=== PATIENT | female | born 1985 | race Caucasian/White ===

== ENCOUNTER 2018-07-26 18:00 | Inpatient (IN) | payer BC ==
[~2018-07-26] VITALS: Ht 157.5 cm; Wt 81.3 kg
[2018-07-26 19:01] VITALS: Ht 157.5 cm; Wt 81.3 kg
[2018-07-26] MEDS ORDERED: PREN-93 PO (19:05)
[2018-07-26 19:09] VITALS: BP 127/65; PULSE 83
[2018-07-26] MEDS: LACTATED RINGER'S 1,000 ML IV SCH (20:17)
[2018-07-26] MEDS ORDERED: IBUPROFEN 600 MG TAB PO PRN (20:30)
[2018-07-26] MEDS ORDERED: METHYLERGONOVINE 0.2 MG INJ IM PRN (20:30)
[2018-07-26] MEDS ORDERED: CARBOPROST 250 MCG INJ IM PRN (20:30)
[2018-07-26] MEDS ORDERED: OXYTOCIN 30 UNITS/LR 500 ML IV SCH ×2 (20:30)
[2018-07-26] MEDS ORDERED: OXYTOCIN 30 UNITS/LR 500 ML IV PRN (20:30)
[2018-07-26] MEDS ORDERED: LIDOCAINE 1% (MPF) 30 ML INJ INJ PRN (20:30)
[2018-07-26] MEDS ORDERED: MISOPROSTOL 50 MCG CAPSULE VAG ONE (20:30)
[2018-07-26] MEDS ORDERED: BUTORPHANOL 2 MG INJ IV PRN ×2 (20:30)
[2018-07-26] MEDS ORDERED: MISOPROSTOL 200 MCG TAB PR PRN (20:30)
[2018-07-26] MEDS ORDERED: MISOPROSTOL 50 MCG CAPSULE PO ONE (21:00)
[2018-07-27] MEDS: MISOPROSTOL 50 MCG CAPSULE PO PRN ×5 (02:03→21:16)
[2018-07-27] MEDS: LACTATED RINGER'S 1,000 ML IV SCH ×3 (04:05→20:08)
--- NOTE | 2018-07-27 09:32 | HP ---
Date/Time of Note Date/Time of Note DATE: 07/27/18 TIME: 09:30 OB - History Hx of Present Chief Complaint: induction of labor Estimated Due Date: Jul 27, 2018 : 3 Para: 2 Spontaneous : 0 Therapeutic : 0 Care: Good Care Ultrasounds: Normal mid trimester US Obstetrical Complications: None Medical Complications: None Past Family/Social History * Past Medical, Surgical, Family and Obstetric Histories reviewed from chart. GBS Status: Negative OB Admission Exam Vital Signs Vital Signs Vital Signs Date Temp Pulse Resp B/P (MAP) Pulse Ox O2 O2 Flow FiO2 Time Delivery Rate 07/26/18 98.7 83 127/65 Room Air 19:09 (85) Physical Exam HEENT: WNL Heart: Rhythm Normal Lungs: Clear, Equal Abdomen: WNL Extremities: Normal Reflexes: Normal Cervical Dilatation: 1cm Effacement: 50% Station: -2 Membranes: Intact Heart Rate: 120's Accelerations: Accelerations Present Decelerations: No Decelerations Varibility: Moderate Last 72 hours Lab Results CBC & BMP 07/26/18 19:00 OB Assessment/Plan Reason for admission: induction of labor Plan: Induction Induction Method: per Misoprostol Protocol ML RESTREPO MD Jul 27, 2018 09:32
[2018-07-28] MEDS ORDERED: OXYTOCIN 30 UNITS/LR 500 ML IV SCH (02:00)
[2018-07-28] MEDS: LACTATED RINGER'S 1,000 ML IV SCH (03:36)
--- NOTE | 2018-07-28 07:42 | PREAC ---
Date/Time of Note Date/Time of Note DATE: 07/28/18 TIME: 07:41 Anesthesia Eval and Record Evaluation Time Pre-Procedure Interview DATE: 07/28/18 TIME: 07:41 Age 32 Sex female NPO: 8 hrs Preoperative diagnosis Labor Pain Planned procedure Labor Epidural Past Medical History Past Medical History: Includes : : (3), Para: (2), Gestational age: (40) Surgery & Anesthesia Issues No known issue Meds Anticoagulation: No Beta Ze within 24 hr: No Reason Beta Ze not given: Pt. not on B-Ze Reported Medications Vit No.124/Iron/FA ( Vitamin Tablet) 1 Each Tablet, 1 EACH PO DAILY, TAB 07/26/18 Current Medications Lactated Ringer's 1,000 ml @ 125 mls/hr Q8H IV Last administered on 07/28/18at 03:36; Admin Dose 125 MLS/HR; Start 07/26/18 at 20:05 Butorphanol Tartrate (Stadol) 1 mg Q2H PRN IV .PAIN SCALE 1-5; Start 07/26/18 at 20:30 Butorphanol Tartrate (Stadol) 2 mg Q2H PRN IV .PAIN SCALE 6-10 Last administered on 07/28/18at 04:40; Admin Dose 2 MG; Start 07/26/18 at 20:30 Lidocaine (Xylocaine 1% (Mpf)) 30 ml ONCE PRN INJ .EPISIOTOMY; Start 07/26/18 at 20:30 Oxytocin/Lactated Ringer's 500 ml @ 500 mls/hr ONCE POST IV ; Start 07/26/18 at 20:30 Oxytocin/Lactated Ringer's 500 ml @ 125 mls/hr POST IV ; Start 07/26/18 at 20:30 Ibuprofen (Motrin) 600 mg ONCE PRN PO .PAIN 1-5; Start 07/26/18 at 20:30 Oxytocin/Lactated Ringer's 500 ml @ 0 mls/hr ONCE PRN IV .VAGINAL BLEEDING; Start 07/26/18 at 20:30 Methylergonovine Maleate (Methergine) 0.2 mg ONCE PRN IM .VAGINAL BLEEDING; Start 07/26/18 at 20:30 Carboprost Tromethamine (Hemabate) 250 mcg ONCE PRN IM .VAGINAL BLEEDING; Start 07/26/18 at 20:30 Misoprostol (Cytotec) 1,000 mcg ONCE PRN NV .VAGINAL BLEEDING; Start 07/26/18 at 20:30 Misoprostol (Cytotec 50 Mcg Capsule) 50 mcg Q4 PRN PO LABOR INDUCTION Last administered on 07/27/18at 21:16; Admin Dose 50 MCG; Start 07/27/18 at 01:00 Oxytocin/Lactated Ringer's 500 ml @ 0 mls/hr Q0M IV Last administered on 07/28/18at 02:10; Admin Dose 1 MLS/HR; Start 07/28/18 at 02:00 Meds reviewed: Yes Allergies Coded Allergies: Penicillins (Verified Allergy, Severe, RASH, 07/01/08) Allergies Reviewed: Yes Labs/Studies Labs Reviewed: Reviewed by anesthesiologist Result Diagram: 07/26/181899 test: Positive Studies: ECG (n/a), CXR (n/a) Pre-procedure Exam Last vitals Vital Signs Date Temp Pulse Resp B/P (MAP) Pulse Ox O2 O2 Flow FiO2 Time Delivery Rate 07/26/18 98.7 83 127/65 Room Air 19:09 (85) Airway: Adequate mouth opening, Adequate thyromental dist Mallampati: Mallampati II Teeth: Normal Lung: Normal Heart: Normal ASA Physical Status ASA physical status: 2 Emergency: None Planned Anesthetic Neuraxial: Epidural Planned Pain Management Epidural Pre-operative Attestations Prior to commencing anesthesia and surgery, the patient was re-evaluated, there was verification of: *The patient's identity *The results of appropriate recent lab work and preoperative vital signs *The above evaluation not changing prior to induction *Anesthetic plan, risk benefits, alternative and complications discussed with patient/family; questions answered; patient/family understands, accepts and wishes to proceed. TOMMIE MASSEY MD Jul 28, 2018 07:42
[2018-07-28] MEDS ORDERED: FENTAnyl 2MCG/ML-ROPIV 0.2% 100 ML ONE (07:55)
--- NOTE | 2018-07-28 08:06 | PAC ---
Date/Time of Note Date/Time of Note DATE: 07/28/18 TIME: 08:05 Post-Anesthesia Notes Post-Anesthesia Note Last documented vital signs Vital Signs Date Temp Pulse Resp B/P (MAP) Pulse Ox O2 O2 Flow FiO2 Time Delivery Rate 07/28/18 98.7 83 16 127/65 97 Room Air 08:09 (85) Activity: WNL Respiratory function: WNL Cardiovascular function: WNL Mental status: Baseline Pain reasonably controlled: Yes Hydration appropriate: Yes Nausea/Vomiting absent: Yes TOMMIE MASSEY MD Jul 28, 2018 08:06
[2018-07-28] MEDS ORDERED: NALOXONE (0.4 MG/ML) INJ IV PRN (08:30)
[2018-07-28] MEDS ORDERED: FENTAnyl 2MCG/ML-ROPIV 0.2% 100 ML BAG EPI SCH (08:30)
[2018-07-28] MEDS ORDERED: GENTAMICIN 120 MG/NS (PMX) 100 ML IVPB SCH (18:20)
--- NOTE | 2018-07-28 19:11 | LDN ---
Date/Time of Note Date/Time of Note DATE: 07/28/18 TIME: 19:09 Delivery Summary Weeks of Gestation 40 weeks Placenta Delivered: Spontaneously Meconium: none Episiotomy: No Laceration repair: First degree perineal alceration repaired with 3-0 chromic. Anesthesia type: Epidural Estimated blood loss: 200 Sponge & Needle done & correct: Yes All needle counts correct: Yes Any foreign bodies felt in the: No Delivery Information Sex Sex: female Apgars 1 Minute: 7 5 Minute: 8 10 Minute: 9 Suctioning Nose & mouth suctioned at lisa: No Umbilical Cord Umbilical cord with: 3 Vessels Cord presentations: no nuchal cord Cord Blood was obtained: Yes Mother & Baby Disposition Disposition Mom & Baby to Maternity; Good: Yes ML RESTREPO MD Jul 28, 2018 19:11
[2018-07-28] MEDS ORDERED: CLINDAMYCIN 900 MG/D5W (PMX) 50 ML IVPB SCH (19:30)
[2018-07-28 22:00] VITALS: BP 116/70; PULSE 92; RESP 19
[2018-07-28] MEDS: LACTATED RINGER'S 1,000 ML IV* SCH (22:20)
[2018-07-28] MEDS ORDERED: MISOPROSTOL 200 MCG TAB PR PRN (22:30)
[2018-07-28] MEDS ORDERED: WITCH HAZEL/GLYCERIN PAD PR PRN (22:30)
[2018-07-28] MEDS ORDERED: GENTAMICIN IV PER PHARMACY XX SCH (22:30)
[2018-07-28] MEDS ORDERED: BENZOCAINE 20% 56 ML SPRAY TOP PRN (22:30)
[2018-07-28] MEDS ORDERED: CARBOPROST 250 MCG INJ IM PRN (22:30)
[2018-07-28] MEDS ORDERED: METHYLERGONOVINE 0.2 MG INJ IM PRN (22:30)
[2018-07-28] MEDS ORDERED: DIBUCAINE 1% 30 GM OINT TOP PRN (22:30)
[2018-07-28] MEDS ORDERED: ACETAMINOPHEN 325 MG TAB PO PRN (22:30)
[2018-07-28] MEDS ORDERED: OXYTOCIN 30 UNITS/LR 500 ML IV PRN (22:30)
[2018-07-28] MEDS ORDERED: HYDROCODONE/APAP (5/325) TAB PO PRN (22:30)
[2018-07-28] MEDS: IBUPROFEN 600 MG TAB PO SCH (23:52)
[2018-07-29] MEDS: GENTAMICIN 80 MG/NS (PMX) 50 ML IVPB SCH ×3 (02:14→18:04)
[2018-07-29] MEDS: LACTATED RINGER'S 1,000 ML IV* SCH ×3 (02:16→22:20)
[2018-07-29 03:20] VITALS: BP 109/57; PULSE 79; RESP 18
[2018-07-29] MEDS: CLINDAMYCIN 900 MG/D5W (PMX) 50 ML IVPB SCH ×3 (05:27→21:56)
[2018-07-29] MEDS: IBUPROFEN 600 MG TAB PO SCH ×3 (05:28→18:00)
[2018-07-29 08:00] VITALS: BP 101/56; PULSE 67; RESP 18
--- NOTE | 2018-07-29 09:28 | NSTRPT ---
NST Information Datetime Report Generated by CPN: 07/29/2018 09:28 Datetime: 07/26/2018 08:28 NST Information EGA: 39.6 Time on Monitor: 07/26/2018 09:00 Time off Monitor: 07/26/2018 09:28 NST Duration (Min): 28 Test and Monitor Explained: Monitor Explained; Test Explained; Verbalized Understanding Pulse: 92 Resp: 18 SBP: 122 DBP: 77 Test Evaluation NST Interventions: None Patient States Movement: Present Contraction Frequency: NONE FHR Baseline : 130 Variability: Moderate 6-25bpm Accelerations: 15X15 Decelerations: None FHR Category: Category I NST Results: Reactive Comments: To u/s. CHANEL 14.8cm. CEPHALIC Electronically Signed By E-Signature: with User ID: [id number], Addendum/Amendment: Report signed by Ana Garcia for Thu Hernandez
[2018-07-29] MEDS: SENNA/DOCUSATE NA (8.6MG/50MG) TAB PO SCH ×2 (09:56→21:10)
[2018-07-29 12:44] VITALS: BP 119/66; PULSE 72; RESP 18
--- NOTE | 2018-07-29 12:57 | QN ---
Documentation Comment No complaint Afebrile VSS Fundus firm Stable Continue IV antibiotics Repeat CBC in AM. ML RESTREPO MD Jul 29, 2018 12:57
[2018-07-29 16:00] VITALS: BP 106/62; PULSE 69; RESP 18
[2018-07-29 20:15] VITALS: BP 123/58; PULSE 77; RESP 17
[2018-07-30] MEDS: IBUPROFEN 600 MG TAB PO SCH ×4 (00:34→18:00)
[2018-07-30] MEDS: GENTAMICIN 80 MG/NS (PMX) 50 ML IVPB SCH ×2 (02:16→10:14)
[2018-07-30 03:36] VITALS: BP 112/59; PULSE 70; RESP 17
[2018-07-30] MEDS: CLINDAMYCIN 900 MG/D5W (PMX) 50 ML IVPB SCH (05:39)
[2018-07-30] MEDS: LACTATED RINGER'S 1,000 ML IV* SCH (06:20)
[2018-07-30 07:45] VITALS: BP 105/53; PULSE 76; RESP 18
[2018-07-30] MEDS ORDERED: DIPHTH/TET/ACEL PERTUSS (ADULT) 0.5 ML VIAL IM* ONE (09:00)
[2018-07-30] MEDS: SENNA/DOCUSATE NA (8.6MG/50MG) TAB PO SCH (09:16)
[2018-07-30] MEDS ORDERED: FERROUS SULFATE (EC) 325 MG TAB PO SCH (12:30)
[2018-07-30 15:40] VITALS: BP 138/82; PULSE 66; RESP 20
--- NOTE | 2018-07-30 16:36 | DS ---
Date/Time of Note Date/Time of Note DATE: 07/30/18 TIME: 16:35 Obstetrical Discharge Record Final Diagnosis Final Diagnosis: Term delivered Other Final Diagnosis chorioamnionitis Vaginal Delivery Obstetrical Delivery: Spontaneous Complications Induction: Yes Condition on Discharge Physical Assessment Voiding: Yes Bowel Movement: Yes Breast: Soft, non-tender, Filling Fundus: Firm Calf Tenderness: No Patient Condition: Stable ML RESTREPO MD Jul 30, 2018 16:36
[2018-07-30] MEDS ORDERED: DOCUSATE SODIUM 100 MG CAP PO SCH (21:00)
--- NOTE | 2018-07-31 18:44 | DELSUM ---
Delivery Summary A-C Datetime Report Generated by CPN: 07/31/2018 18:44 DELIVERY PERSONNEL Supply Chain Project Manager: Karla Barnard MATERNAL INFORMATION Delivery Anesthesia: Epidural Medications in Delivery: 30 units pitocin Delivery QBL (ml): 200 Placenta Cultured: Yes Maternal Complications: None LABOR SUMMARY EDC: 07/27/2018 00:00 No. Babies in Womb: 1 Attempted: No Labor Anesthesia: None LABOR INFORMATION Reason for Induction: Other Reason for Induction- Other: elective Onset of Labor: 07/28/2018 08:00 Complete Dilatation: 07/28/2018 15:34 Cervical Ripening Agents: Cytotec @ (Annotations: 50mcg (dose #6)) Oxytocin: Induction Group B Beta Strep: Negative Antibiotics # of Doses: 1 Antibiotics Time of Last Dose: 07/28/2018 18:26 Steroids Given: None Reason Steroids Not Administered: Not Applicable MEMBRANES Membranes Rupture Method: Spontaneous Rupture of Membranes: 07/28/2018 09:01 Length of Rupture (hr): 9.85 Amniotic Fluid Color: Clear Amniotic Fluid Amount: Large Amniotic Fluid Odor: Foul STAGES OF LABOR Stage 1 hr: 7 Stage 1 min: 34 Stage 2 hr: 3 Stage 2 min: 18 Stage 3 hr: 0 Stage 3 min: 5 Total Time in Labor hr: 10 Total Time in Labor min: 57 VAGINAL DELIVERY Episiotomy: None Laceration Extension: First Degree Laceration Type: Perineal Laceration Repair: Yes Initial Vag Sponge Count: 10 Final Vag Sponge Count: 10 Initial Vag Sharps Count: 1 Final Vag Sharps Count: 2 Sponge Count Correct: Yes; Vaginal Sweep Performed Sharps Count Correct: Yes BABY A INFORMATION Infant Delivery Date/Time: 07/28/2018 18:52 Method of Delivery: Vaginal Born in Route : No : N/A Forceps: N/A Vacuum Extraction: N/A Shoulder Dystocia : No SHOULDER DYSTOCIA BABY A Infant Delivery Date/Time: 07/28/2018 18:52 PRESENTATION/POSITION BABY A Presentation: Cephalic Cephalic Presentation: Vertex Breech Presentation: N/A PLACENTA INFORMATION BABY A Placenta Delivery Time : 07/28/2018 18:57 Placenta Method of Delivery: Expressed Placenta Status: Delivered SCORES BABY A Heart Rate 1 min: >100 bpm Resp Effort 1 min: Good Cry Reflex Irritability 1 min: Cough/Sneeze/Pulls Away Muscle Tone 1 min: Some Flexion of Extrem Color 1 min: Blue/Pale Resuscitation Effort 1 min: Tactile Stimulation SCORE 1 MIN: 7 Heart Rate 5 min: >100 bpm Resp Effort 5 min: Good Cry Reflex Irritability 5 min: Cough/Sneeze/Pulls Away Muscle Tone 5 min: Active Motion Color 5 min: Blue/Pale Resuscitation Effort 5 min: Tactile Stimulation SCORE 5 MIN: 8 Heart Rate 10 min: >100 bpm Resp Effort 10 min: Good Cry Reflex Irritability 10 min: Cough/Sneeze/Pulls Away Muscle Tone 10 min: Active Motion Color 10 min: Body [place], Extremit Blue Resuscitation Effort 10 min: Tactile Stimulation SCORE 10 MIN: 9 INFANT INFORMATION BABY A Gestational Age at Delivery: 40.1 Gestational Status: Full Term- 39- 40.6 Weeks Infant Outcome : Liveborn Condition : Stable Infant Sex: Female IDENTIFICATION/MEDS BABY A ID Band Number: [id number] ID Band Location: Right Leg; Left Arm Sensor Applied: Yes Sensor Number: [id number] Sensor Location : Cord Clamp Vitamin K Given : Not Given Erythromycin Given: Not Given WEIGHT/LENGTH BABY A Birthweight (gm): 3185 Infant Weight (lb): 7 Weight (oz): 0 Infant Length (in): 19.50 Length (cm): 49.53 CORD INFORMATION BABY A No. Cord Vessels: 3 Nuchal Cord : N/A Cord Blood Taken: Yes Suction: Mouth; Nose ASSESSMENT BABY A Complications: Other Infant Complications- Other: TEMP 102F Physical Findings at Delivery: Within Normal Limits Respirations: Appears Normal Hybrid Tester/ALS Called : Yes Infant Care By: NICU Transferred To: Remains with Mother
== END 2018-07-30 18:25 | disposition home or self-care (01) | DRG 805 ==
LOC: L-D 18:25 → PP1 07-28 21:55
PROVIDERS: ADMIT Obstetrics & Gynecology; ATTEND Obstetrics & Gynecology
PROC: 10E0XZZ Delivery of Products of Conception, External Approach (ICD-10-PCS; principal; 2018-07-28)
PROC: 0KQM0ZZ Repair Perineum Muscle, Open Approach (ICD-10-PCS; 2018-07-28)
DX: O48.0 Post-term pregnancy (principal); O70.0 First degree perineal laceration during delivery; O41.1230 Chorioamnionitis, third trimester, not applicable or unspecified; Z37.0 Single live birth; Z3A.40 40 weeks gestation of pregnancy
CPT/HCPCS: 62322; 76815; 80170; 82565; 84520; 85025; 85610; 85730; 86592; 86850; 86900; 86901; 87070; 87086; 87340; 88307; 99464; J0595; J1580; J2590; J3010; J7120